=== PATIENT | male | born 1970 | race Caucasian/White ===

== ENCOUNTER 2019-08-15 18:11 | Inpatient (IN) | payer SELFPAY ==
[~2019-08-15] VITALS: Ht 167.6 cm; Wt 71.9 kg
[2019-08-15] MEDS ORDERED: ONDANSETRON HCL 4MG/2ML INJ IV STA (21:02)
[2019-08-15] MEDS ORDERED: ASPIRIN 81MG TABLET PO ONE (21:15)
[2019-08-15] MEDS ORDERED: NITROGLYCERIN 0.4MG TABLET SL SL PRN ×2 (21:15→22:45)
[2019-08-15 21:27] LABS: CHLORIDE 106 mEq/L (98-107)
[2019-08-15 21:31] LABS: PROTHROMBIN TIME 10.5 sec (9.6-11.0)
[2019-08-15 21:33] LABS: BASOPHILS % 0.2 % (0.0-2.0); EOSINOPHILS % 0.4 % (0.0-5.0); HEMATOCRIT. 46.1 % (42.0-52.0); HEMOGLOBIN. 15.8 g/dL (14.0-18.0); LYMPHOCYTES % 7.3 % (20.0-50.0); MEAN CORPUSCULAR VOLUME 93.3 fL (80.0-94.0); MEAN PLATELET VOLUME 10.5 fl (7.4-10.4); MONOCYTES % 7.7 % (2.0-8.0); NEUTROPHILS % 84.4 % (40.0-76.0); PLATELET 110 x1000/uL (130-400); RED BLOOD CELL COUNT 4.94 mill/uL (4.7-6.1); RED CELL DISTRIBUTION WIDTH 14.2 % (11.6-14.6)
[2019-08-15] MEDS ORDERED: MAGNESIUM/ALUMINUM HYDROXIDE/SIMETHICONE 30ML UDC PO PRN (22:45)
[2019-08-15] MEDS ORDERED: LORAZEPAM 0.5MG TABLET PO PRN (22:45)
[2019-08-15] MEDS ORDERED: ONDANSETRON HCL 4MG/2ML INJ IV PRN (22:45)
[2019-08-15] MEDS ORDERED: ACETAMINOPHEN 325MG TABLET PO PRN (22:45)
[2019-08-15] MEDS ORDERED: ZOLPIDEM TARTRATE 5MG TABLET PO PRN (22:45)
[2019-08-15] MEDS ORDERED: GUAIFENESIN 200MG/10ML SUGAR FREE UDC PO PRN (22:45)
[2019-08-15] MEDS ORDERED: CLONIDINE 0.1MG TABLET PO PRN (22:45)
[2019-08-15] MEDS ORDERED: MORPHINE SULFATE 4 MG/ML CPJ (NOT FOR IM USE) IV SCH (22:45)
[2019-08-15] MEDS ORDERED: IPRATROPIUM/ALBUTEROL 0.5-3(2.5)MG/3ML NEB NEB PRN (22:45)
[2019-08-15] MEDS ORDERED: DOCUSATE SODIUM 100MG CAPSULE PO PRN (22:45)
[2019-08-15] MEDS ORDERED: KETOROLAC 15MG/ML VIAL IV PRN (22:45)
[2019-08-15 23:07] LABS: ETHANOL BLOOD < 10 mg/dL
[2019-08-15 23:11] LABS: LDL CHOLESTEROL 104 mg/dL (5-100)
[2019-08-15 23:13] LABS: HDL CHOLESTEROL 58 mg/dL (40-59)
[2019-08-16 01:55] VITALS: BP 97/62
[2019-08-16 04:00] VITALS: BP 96/64
[2019-08-16 06:54] LABS: CREATINE KINASE 111 IU/L (39-308)
[2019-08-16 06:55] LABS: CREATINE KINASE MB FRACTION < 1.0 ng/mL (0.5-3.6)
[2019-08-16] MEDS ORDERED: SUCRALFATE 1 G/10 ML UDC PO SCH (07:20)
[2019-08-16 08:52] VITALS: BP 105/70
[2019-08-16] MEDS ORDERED: ASPIRIN 81MG EC TABLET PO SCH (09:00)
[2019-08-16] MEDS ORDERED: FAMOTIDINE 20MG TABLET PO SCH (09:00)
[2019-08-16] MEDS ORDERED: ENOXAPARIN 40MG/0.4ML SYR SUBCUT SCH (09:00)
[2019-08-16 10:38] VITALS: BP 105/70
[2019-08-16] MEDS ORDERED: PNEUMOCOCCAL 23-VAL P-SAC VAC 0.5 ML IM ONE (12:00)
[2019-08-16 12:46] VITALS: BP 117/78
== END 2019-08-16 15:00 | disposition home or self-care (01) | DRG 243 ==
LOC: ER 19:17 → 6WST 22:24 → EDBEDREQTM 22:28 → EDBEDREQ 22:28 → ENRESERV 23:19
PROVIDERS: ADMIT Internal Medicine; ATTEND Internal Medicine
DX: K21.9 Gastro-esophageal reflux disease without esophagitis (principal); D69.59 Other secondary thrombocytopenia; E83.51 Hypocalcemia; F10.21 Alcohol dependence, in remission; I25.10 Atherosclerotic heart disease of native coronary artery without angina pectoris; Z79.899 Other long term (current) drug therapy
CPT/HCPCS: 36415; 71045; 80061; 80320; 82550; 82553; 83036; 83880; 84484; 93005; 96374; 99285; J2270; J2405; G0480